=== PATIENT | male | born 1990 | race Two or more races ===

== ENCOUNTER 2022-04-28 12:31 | Emergency (ER) | payer OTHER ==
[~2022-04-28] VITALS: Ht 190.5 cm; Wt 127.0 kg
[2022-04-28 15:50] VITALS: BP 126/78
[2022-04-28] MEDS ORDERED: IBUP800T27 PO (16:13)
[2022-04-28] MEDS ORDERED: CEPH-510 PO (16:13)
== END 2022-04-28 16:40 | disposition home or self-care (01) ==
LOC: EDBD 12:31 → ER 12:31
DX: S01.01XA Laceration without foreign body of scalp, initial encounter (principal); S60.221A Contusion of right hand, initial encounter; V48.5XXA Car driver injured in noncollision transport accident in traffic accident, initial encounter; Y93.89 Activity, other specified; Y92.89 Other specified places as the place of occurrence of the external cause; Y99.8 Other external cause status
CPT/HCPCS: 12004; 70450; 73130